=== PATIENT | female | born 1965 | race Caucasian/White ===

== ENCOUNTER 2016-07-24 19:07 | Emergency (ER) | payer OTHER ==
[~2016-07-24] VITALS: Ht 175.3 cm; Wt 103.5 kg
[~2016-07-24 19:07] MED LIST: ALLERGY MED; ESOM40CA PO; FEXO1TAB29 PO; OMEP20CA9; TRIA10.8 NAS
[2016-07-24 19:17] VITALS: BP 157/86
== END 2016-07-24 20:07 | disposition home or self-care (01) ==
LOC: ED 20:01
DX: H60.502 Unspecified acute noninfective otitis externa, left ear (principal)
CPT/HCPCS: 99283

== ENCOUNTER → 2020-08-19 | Outpatient (CLI) | payer OTHER | END | disposition home or self-care (01) | LOC: CFH 07:49 | PROVIDERS: ATTEND Internal Medicine Cardiovascular Disease | DX: R00.2 Palpitations (principal) | CPT/HCPCS: 93306 ==